=== PATIENT | female | born 1970 | race Caucasian/White ===

== ENCOUNTER → 2017-02-21 | Outpatient (CLI) | payer OTHER | LOC: CIMAGING 10:55 | DX: Z12.31 Encounter for screening mammogram for malignant neoplasm of breast (principal) | CPT/HCPCS: G0202 ==

== ENCOUNTER 2019-02-12 22:50 | Emergency (ER) | payer OTHER ==
[2019-02-12] MEDS ORDERED: ASPIRIN 325 MG TAB PO ONE (23:29)
--- NOTE | 2019-02-12 23:29 | EDPHY ---
General - History Smoking Status: Never smoked Time Seen by Provider: 02/12/19 23:28 Narrative: CLINICAL IMPRESSION: Chest pressure, anxiety, elevated glucose ASSESSMENT/PLAN: Patient is a 48-year-old female with a significant history of fibromyalgia, bipolar disorder, depression and hypo thyroidism who presents to the emergency department with complaints of a brief episode of chest pressure around 4:00 p.m. , anxiety, shaking and generally feeling unwell. Patient is afebrile and not toxic appearing, she was in no acute distress. 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 Dr. Muir. Troponin 0.01, negative. CBC with no evidence of leukocytosis or significant anemia. BMP with no significant metabolic abnormality or evidence of acute kidney injury. Magnesium normal. Her glucose was noted to be elevated at 193 however she had a large meal just prior to arrival. TSH mildly elevated at 5.3. Dimer negative, no findings to suggest PE. Overall the patient had a very reassuring workup in the emergency department. Her chest pressure that occurred greater than 6 hrs prior to arrival is very atypical for angina or acute coronary syndrome. Query if her symptoms are related to underlying anxiety as she has been experiencing similar symptoms over the last 3 months and she is under a significant amount of stress. The patient understands the importance of following up on her laboratory studies to include her elevated blood glucose, hemoglobin A1c is pending at this time. No findings to suggest infectious process, DKA, metabolic abnormality, thyrotoxicosis, PE or ACS. I also considered other life-threatening diagnoses such as aortic dissection, pneumothorax, pneumonia, Anaya-Davis tear, boerhaave syndrome, pancreatitis, mediastinitis, myocarditis, pericarditis, or additional intra-abdominal/intrathoracic emergent processes however low clinical suspicion. On repeat examination the patient reports that that she is feeling so much better. She is very reassured by findings today and denies any specific complaint. She was noted to be tachycardic on arrival, this normalized to 78 prior to discharge. Patient is well established with her primary care provider and already has an appointment scheduled for Friday. I have placed a Cardiology consult, she understands the importance of following up on her abnormal EKG. Conservative return precautions discussed- she will return for any symptom concern, particularly chest pain, shortness of breath, rapid or irregular heartbeat, unusual fatigue, cough, coughing up blood or discolored sputum, swelling, dizziness, weakness, fainting, nausea, vomiting, abdominal pain, fever, chills, headache, or for any other new, worsening, or worrisome symptoms. Patient verbalizes understanding and she is in agreement with plan. DIFFERENTIAL DX: Chest pain including but not limited to myocardial ischemia, pulmonary embolus, chest wall pain, pleural inflammation, pulmonary infectious causes and anxiety. ED COURSE: 2338: Case discussed with Dr. Muir 0005: ECG reviewed by myself and Dr. Muir, reveals sinus rhythm with a rate of 82. 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 0047: Dr. Muir the evaluated the patient, reassuring workup thus far. No evidence of leukocytosis or anemia. D-dimer is negative at 0.31. Troponin was negative at 0.01. Metabolic panel, TSH and magnesium still pending. CHIEF COMPLAINT: Chest heaviness, shaking, anxiety HPI: Patient is a 48-year-old female with a significant history of fibromyalgia, bipolar disorder, depression, hypothyroidism who presents to the emergency department with reports of chest pressure earlier this evening, shaking and generally feeling unwell. Patient reports she has had similar symptoms over the last 3 months but they tend to last a brief period and resolve on their own. Patient reports she was recently in [place] with her son, last Friday she was in the emergency department in [place] with complaints of ear pain, diagnosed with presumed external otitis and otitis media. Patient completed antibiotics and reports feeling much better. They flew in this afternoon at approximately an hour after being home she started to feel chest pressure that lasted for 3-4 minutes and resolved, anxiety, generally feeling unwell with some associated chills. There was no radiation of her chest pressure, she denies any chest pain. She did not have any associated diaphoresis. Patient denies any fever, runny nose, congestion or cough. She has had no shortness of breath. She denies any abdominal pain, nausea or vomiting. Her appetite has been normal. She did have some diarrhea after antibiotic use however this is improving. She denies any urinary symptoms to include dysuria, hematuria or frequency. She denies any headache, dizziness or focal weakness however endorses that her hands both feel heavy. She scheduled an appointment with her primary care provider on Friday however became concerned and proceeded to the emergency department. PMH: Fibromyalgia, bipolar disorder, depression, hypothyroidism Family History: Noncontributory Social History: Patient is a nonsmoker, denies any illicit drug use or alcohol abuse REVIEW OF SYSTEMS: All other systems negative Constitutional: Chills, no fever or decreased appetite. Eyes: No discharge, vision change. ENT: Dry mouth. No sore throat, congestion, ear pain. Cardiovascular: Chest pressure, denies chest pain and no palpitations. Respiratory: No cough, no shortness of breath. Gastrointestinal: No abdominal pain, no vomiting, diarrhea. Genitourinary: No hematuria, dysuria, flank pain, pelvic pain Musculoskeletal: No back pain, joint swelling, joint pain, myalgias. Skin: No rashes, color change. Neurological: No headache, dizziness, weakness. PHYSICAL EXAM: General Appearance: Alert, well-developed, no acute distress. HENT: Normocephalic, atraumatic. Bilateral external ears are normal. Bilateral tympanic membranes are normal with pearly sutherland reflex. Nares are clear, mucosa is pink. Oropharynx is clear, uvula is midline. There is no tonsillar enlargement or exudate. The dentition is normal. Eyes: PERRLA, no acute vision change, nystagmus, swelling, discharge, pain or photosensitivity. Conjunctiva pink, no pallor or injection Neck: Supple, nontender, no lymphadenopathy, no midline pain, FROM, no meningismus. Respiratory: There are no retractions, lungs are clear to auscultation. Cardiac: Tachycardic with a rate of 119, no murmurs or gallops. Gastrointestinal: Abdomen is soft, nontender, bowel sounds normal, no masses/ hernia, no rigidity, guarding or focal peritoneal findings. Neurological: Alert and oriented x 3, CN 2-12 grossly intact, normal gait no ataxia, DTR's intact, normal sensation and strength Skin: Warm, dry, no rashes, no nodules on palpation. Musculoskeletal: Extremities are symmetrical, full range of motion, no tenderness, deformity, swelling, or erythema. Psychiatric: Patient is oriented X 3, there is no agitation. MEDICAL DECISION MAKING: Patient was seen independently. Secondary supervising physician at time of evaluation was Dr. Muir, she also evaluated this patient. Diagnosis: Chest pressure, anxiety, elevated glucose. New, requires workup Summary: See Assessment and Plan for summary of ED visit Clinical lab tests: ordered / reviewed. Independent visualization of images, tracing, or specimens: Yes. Decision to obtain medical records or history from someone other than the patient: No. Review / Summarize previous medical records: Yes. Discussed patient with another provider: Yes, Dr. Muir Patient Progress: Stable, discharge. (Tawana Rae) ED PA DICTATION I evaluated and participated in the management of the patient. I also evaluated the patient independently. My co-signature indicates that I have reviewed this chart and I agree with the findings and plan of care as documented. My personal H&P findings include: This is a 48-year-old female with history of fibromyalgia, bipolar disorder who presents with chest pressure , anxiety, shaking, paresthesias which have been intermittent for some time now though worse today after returning home from a flight from [place]. Here, vital signs are normal and she is generally well-appearing. Her EKG does have some T- wave inversions. We do not have an old for comparison. She reports that her chest pain is quite minimal. Her troponin is negative. Her heart score is less than 3. I do not believe she requires admission for chest pain. Of note, patient's blood glucose was elevated at 193 though she had eaten prior to arriving in the emergency department. We have added on an A1c. Early diabetes could explain some of her symptoms. I suspect anxiety could also be playing a role. Because of her EKG changes we will refer her to [facility]. (Summer Muir) - Objective Vital Signs: Initial Vital Signs Temperature (C) 36.5 C 02/12/19 22:52 Heart Rate 119 H 02/12/19 22:52 Respiratory Rate 16 02/12/19 22:52 Blood Pressure 155/97 H 02/12/19 22:52 O2 Sat (%) 93 02/12/19 22:52 O2 Delivery Mode Room Air Allergies/Adverse Reactions: Sulfa (Sulfonamide Antibiotics) Adverse Reaction (Unknown, Verified 09/18/12 12: 42) Home Medications: Medication Instructions Recorded LEVOTHYROXINE SODIUM [Levoxyl 137 137 mcg PO 09/18/12 mcg] QUETIAPINE FUMARATE [Seroquel] 100 mg PO 09/18/12 lamOTRIGine [Lamotrigine] 100 mg PO 09/18/12 oxyCODONE/APAP 5/325 [Percocet 09/18/12 5/325 (RX)] Vesicare 02/12/19 Laboratory Results: Laboratory Results 02/13/19 00:01 02/13/19 00:01 02/13/19 02/13/19 02/13/19 00:04 00:01 00:01 WBC RBC Hgb Hct MCV MCH MCHC RDW Plt Count MPV Neut % (Auto) Lymph % (Auto) Scott % (Auto) Eos % (Auto) Baso % (Auto) Nucleat RBC Rel Count Absolute Neuts (auto) Absolute Lymphs (auto) Absolute Monos (auto) Absolute Eos (auto) Absolute Basos (auto) Absolute Nucleated RBC Immature Gran % Immature Gran # D-Dimer 0.31 ug/mLFEU ug/mLFEU (0.00-0.50) Sodium Potassium Chloride Carbon Dioxide Anion Gap BUN Creatinine Estimated GFR Glucose Hemoglobin A1c Pending Estim Average Glucose Pending Calcium Magnesium POC Troponin I 0.01 ng/mL ng/mL (0.00-0.08) TSH 02/13/19 02/13/19 00:01 00:01 WBC 6.44 10^3/uL 10^3/uL (3.80-9.50) RBC 4.34 10^6/uL 10^6/uL (4.18-5.33) Hgb 12.6 g/dL g/dL (12.6-16.3) Hct 36.3 % L % (38.0-47.0) MCV 83.6 fL fL (81.5-99.8) MCH 29.0 pg pg (27.9-34.1) MCHC 34.7 g/dL g/dL (32.4-36.7) RDW 12.5 % % (11.5-15.2) Plt Count 269 10^3/uL 10^3/uL (150-400) MPV 8.8 fL fL (8.7-11.7) Neut % (Auto) 52.7 % % (39.3-74.2) Lymph % (Auto) 38.4 % % (15.0-45.0) Scott % (Auto) 5.4 % % (4.5-13.0) Eos % (Auto) 2.3 % % (0.6-7.6) Baso % (Auto) 0.9 % % (0.3-1.7) Nucleat RBC Rel Count 0.0 % % (0.0-0.2) Absolute Neuts (auto) 3.39 10^3/uL 10^3/uL (1.70-6.50) Absolute Lymphs (auto) 2.47 10^3/uL 10^3/uL (1.00-3.00) Absolute Monos (auto) 0.35 10^3/uL 10^3/uL (0.30-0.80) Absolute Eos (auto) 0.15 10^3/uL 10^3/uL (0.03-0.40) Absolute Basos (auto) 0.06 10^3/uL 10^3/uL (0.02-0.10) Absolute Nucleated RBC 0.00 10^3/uL 10^3/uL (0-0.01) Immature Gran % 0.3 % % (0.0-1.1) Immature Gran # 0.02 10^3/uL 10^3/uL (0.00-0.10) D-Dimer Sodium 139 mEq/L mEq/L (135-145) Potassium 4.0 mEq/L mEq/L (3.5-5.2) Chloride 105 mEq/L mEq/L (97-110) Carbon Dioxide 21 mEq/l L mEq/l (22-31) Anion Gap 13 mEq/L mEq/L (6-14) BUN 15 mg/dL mg/dL (7-23) Creatinine 0.6 mg/dL mg/dL (0.6-1.0) Estimated GFR > 60 Glucose 193 mg/dL H mg/dL (70-100) Hemoglobin A1c Estim Average Glucose Calcium 10.0 mg/dL mg/dL (8.5-10.4) Magnesium 1.8 mg/dL mg/dL (1.6-2.3) POC Troponin I TSH 5.310 uIU/mL H uIU/mL (0.465-4.680) Medications Given: Discontinued Medications Aspirin (Aspirin) 325 mg PO EDNOW ONE Stop: 02/12/19 23:30 Last Admin: 02/12/19 23:51 Dose: 325 mg Sodium Chloride (Ns) 1,000 mls @ 0 mls/hr IV ONCE ONE PRN Reason: Wide Open Stop: 02/12/19 23:38 Last Admin: 02/12/19 23:53 Dose: 1,000 mls Point of Care Test Results: Chemistry 02/13/19 00:04 POC Troponin I 0.01 ng/mL ng/mL (0.00-0.08) Departure - Departure Disposition: Home, Routine, Self-Care Clinical Impression: Pressure in chest, Anxiety Condition: Good Instructions: Chest Pain (ED), Anxiety (ED) Additional Instructions: DISCHARGE INSTRUCTIONS FROM YOUR DOCTOR Thank you for visiting our emergency department today. Please keep in mind that discharge from the emergency department does not mean that there is nothing wrong - it simply means that we have not identified an emergency condition that requires further evaluation or treatment in the hospital. Please follow-up with your primary care provider on Friday as we discussed. Your glucose was noted to be elevated at 193, your TSH was mildly elevated at 5.3. Both of these laboratory studies will need to be re-evaluated by your primary care provider. I did order a hemoglobin A1c which is pending at this time. I suspect your blood glucose was elevated partially secondary to eating just before coming to the emergency department however certainly needs to be followed up on. The exact cause of your chest pain was not identified. It could be due to anxiety and stress. The tests we have performed are essentially normal. Serious causes of chest pain are still possible, therefore. If the pain persists tomorrow, you should return for a recheck. Rest, eat healthy well balanced low carbohydrate diet and pursue exercise/ activity as allowed by your primary care provider or director of recreation therapy. Try and reduce stress as much as possible. Continue your regular medications as prescribed. Schedule a follow-up appointment with your primary care provider in the next 1- 2 days for close re-evaluation. Return for any symptom concern, particularly chest pain, shortness of breath, rapid or irregular heartbeat, unusual fatigue, cough, coughing up blood or discolored sputum, swelling, dizziness, weakness, fainting, nausea, vomiting, abdominal pain, fever, chills, headache, or for any other new, worsening, or worrisome symptoms. People present with illnesses and injuries in different ways, and it is always possible that we have missed something. You may always return for re-evaluation if symptoms worsen or if they are not improving or if you develop new/different symptoms. Again, thank you for choosing our emergency department. We hope that you feel better. Referrals: Darlene Caro PA [Primary Care Provider] - As per Instructions (Friday as scheduled) Jarad Mac MD [Medical Doctor] - As per Instructions (A referral has been put through the system for a cardiology consult, if you do not hear from them by Friday please call to schedule appointment for follow-up next week.)
[2019-02-12] MEDS ORDERED: NS 1,000 ML IV ONE (23:37)
[2019-02-13 00:09] LABS: PLATELET COUNT 269 10^3/uL (150-400)
[2019-02-13 01:13] VITALS: BP 117/79
== END 2019-02-13 01:26 | disposition home or self-care (01) ==
DX: R07.9 Chest pain, unspecified (principal); F41.9 Anxiety disorder, unspecified; R79.89 Other specified abnormal findings of blood chemistry; M79.7 Fibromyalgia
CPT/HCPCS: 84484-ER

== ENCOUNTER 2019-03-17 22:56 | Observation (INO) | payer OTHER ==
[2019-03-17] MEDS ORDERED: NS 1,000 ML IV ONE (23:12)
[2019-03-17] MEDS ORDERED: NITROGLYCERIN 0.4 MG BTL SL ONE (23:18)
[2019-03-17] MEDS ORDERED: ASPIRIN 325 MG TAB PO ONE (23:18)
[2019-03-18] MEDS ORDERED: ACETAMINOPHEN 325 MG TAB PO PRN (02:37)
[2019-03-18] MEDS ORDERED: LORazepam 0.5 MG TAB PO PRN (02:37)
[2019-03-18] MEDS ORDERED: diphenhydrAMINE 25 MG CAP PO PRN (02:37)
[2019-03-18] MEDS ORDERED: ONDANSETRON DISINTEGRATING 4 MG TAB PO PRN (02:37)
[2019-03-18] MEDS ORDERED: ONDANSETRON 4 MG/2 ML VIAL IVP PRN (02:37)
[2019-03-18] MEDS ORDERED: NITROGLYCERIN 0.4 MG BTL SL PRN (02:42)
[2019-03-18] MEDS ORDERED: REGADENOSON 0.4 MG/5 ML SYR IVP ONE (11:03)
== END 2019-03-18 15:53 | disposition home or self-care (01) ==
DX: R07.9 Chest pain, unspecified (principal); E11.9 Type 2 diabetes mellitus without complications; F31.9 Bipolar disorder, unspecified; Z79.84 Long term (current) use of oral hypoglycemic drugs
CPT/HCPCS: 71045; 78452; 93017; A9500; G0378